=== PATIENT | male | born 1990 | race Caucasian/White ===

== ENCOUNTER 2017-10-28 07:35 | Day surgery (SDC) | payer OTHER ==
[~2017-10-28 07:35] MED LIST: Buffered Lidocaine 0.9% SYRIN* 5 ML/SYR SYRINGE INTRADERM ONE
[2017-10-28] MEDS ORDERED: Buffered Lidocaine 0.9% SYRIN* 5 ML/SYR SYRINGE ONE (07:49)
[2017-10-28] MEDS ORDERED: ceFAZolin 2 GM in 100 MLS NS (*) BAG IVPB ONE (07:49)
[2017-10-28] MEDS ORDERED: Midazolam* 1 MG/ML 2 ML VIAL (2 MG) ONE ×2 (08:33→10:12)
[2017-10-28] MEDS ORDERED: fentaNYL* 50 MCG/ML 2 ML VIAL (100 MCG VIAL) ONE ×2 (08:33→10:13)
[2017-10-28] MEDS ORDERED: PROCHLORPERAZINE INJ 5 MG/ML 2 ML VIAL IV PRN (09:10)
[2017-10-28] MEDS ORDERED: fentaNYL* 50 MCG/ML 2 ML VIAL (100 MCG VIAL) IV PRN (09:10)
[2017-10-28] MEDS ORDERED: HYDROmorphone INJ* 1 MG/ML CARPUJECT SYRINGE IV PRN (09:10)
[2017-10-28] MEDS ORDERED: HYDROcodone/ACETAMIN 5-325 MG* 1 TAB PO PRN ×2 (09:10)
[2017-10-28] MEDS ORDERED: Acetaminophen TAB* 325 MG PO PRN (09:10)
[2017-10-28] MEDS ORDERED: DiMENhydriNATE IV* 50 MG/ML VIAL IV PUSH PRN (09:10)
[2017-10-28] MEDS ORDERED: Naloxone* 0.4 MG/ML 1 ML VIAL IV PRN (09:10)
[2017-10-28] MEDS ORDERED: Ondansetron INJ* 2 MG/ML VIAL IV PRN (09:10)
[2017-10-28] MEDS ORDERED: Bupivacaine 0.5% SDV PF* 10-30ML VIAL ONE (09:33)
[2017-10-28] MEDS ORDERED: Famotidine IV* 10 MG/ML 2 ML (20 mg) ONE (09:46)
[2017-10-28] MEDS ORDERED: Lidocaine 2% PF * 5 ML VIAL ONE (09:46)
[2017-10-28] MEDS ORDERED: Propofol* 10 MG/ML 20 ML BTL IV PUSH ONE (09:46)
[2017-10-28] MEDS ORDERED: Ketorolac INJ* 30 MG/ML 1 ML VIAL ONE (09:46)
[2017-10-28] MEDS ORDERED: Dexamethasone IV* 4 MG/ML 1 ML (4 MG) ONE (09:46)
[2017-10-28] MEDS ORDERED: PROCHLORPERAZINE INJ 5 MG/ML 2 ML VIAL ONE (11:59)
[2017-10-28] MEDS ORDERED: Ondansetron INJ* 2 MG/ML VIAL ONE (11:59)
[2017-10-28] MEDS ORDERED: HYDROmorphone INJ* 2 MG/ML CARPUJECT SYRINGE ONE (12:08)
[2017-10-28] MEDS ORDERED: DiMENhydriNATE IV* 50 MG/ML VIAL ONE (13:04)
[2017-10-28 14:06] VITALS: BP 132/80
--- NOTE | 2017-10-28 18:29 | RAD ---
INDICATION: Subtalar fusion COMPARISON: None FINDINGS: 29 seconds of fluoroscopy were provided for the orthopedics department. Fluoroscopic spot imaging of the right ankle were obtained for operative control and show subtalar fusion . CPT II Codes: 6045F (fluoro time doc)
--- NOTE | 2017-10-29 10:28 | OP ---
DATE OF OPERATION: 10/28/17 - [facility] DATE OF : 86 SURGEON: Zane Jimenez MD DEPUTY BAILIFF: ADRYAN Girard ANESTHESIOLOGIST: Dr. Dunn ANESTHESIA: General PRE-OP DIAGNOSIS: Right subtalar arthrosis. POST-OP DIAGNOSIS: Right subtalar arthrosis. OPERATIVE PROCEDURE: Right subtalar fusion with tibial bone graft. DESCRIPTION OF PROCEDURE: The patient was taken to the operating room where longitudinal incision was made from the tip of the malleolus towards the base of the third cuneiform. We incised down through the ligaments of the sinus tarsi allowing laminar software applications engineer to open the subtalar joint. I would say overall that his subtalar joint was quite tight in terms of distraction. We used a 4 mm power chayito to prepare the joint for arthrodesis. Proximally at Gerdy's tubercle, we made a 3 cm incision over the tubercle itself splitting the iliotibial band longitudinally and then using a small power chayito to open the lateral cortex. Cancellous bone was harvested, mixed with a small amount of allograft, morselized bone and some DBX bone putty. This was placed along the subtalar joint. Proximally, we packed the remaining allograft into the defect of the proximal tibia closing the periosteum with 2-0 Vicryl and Monocryl for the skin. Fixation of the subtalar joint was then performed using a partially threaded 7.3 mm cannulated screw over a washer compressing the subtalar joint tightly and displaying a neutral alignment and good screw position on the image intensifier. We irrigated laterally closing with 2-0 Vicryl, shady for the skin and 2-0 Prolene for the heel wound. A compression dressing and a plaster splint was applied. [id number]/[facility] #: [id number] MTDD
== END 2017-10-28 14:07 | disposition home or self-care (01) ==
LOC: OR 07:35
PROVIDERS: ATTEND Orthopaedic Surgery
DX: M19.171 Post-traumatic osteoarthritis, right ankle and foot (principal)
CPT/HCPCS: 76000; C1713; C1776; C9359; J0780; J1100; J1170; J1240; J1885; J2250; J2405; J2704; J3010